=== PATIENT | female | born 1990 | race Caucasian/White ===

== ENCOUNTER 2024-05-03 08:06 | Emergency (ER) | payer OTHER, SELFPAY ==
[2024-05-03 08:17] VITALS: BP 139/73; PULSE 80; RESP 18; TEMP 36.4; O2SAT 99; BMI 31.8
--- NOTE | 2024-05-03 08:28 | USR_ITS ---
PROCEDURE INFORMATION: Exam: US First Trimester, Transabdominal and US , Transvaginal Exam date and time: 05/03/2024 9:37 AM Age: 33 years old Clinical indication: complicated by abdominal or pelvic pain; Right lower quadrant; First trimester (<14 weeks 0 days); Gestational age or lmp: 5w; ; Prior surgery; Surgery date: 6+ months; Surgery type: Unsure of dates. Patient states she has had laparoscopic surg and d&c; Additional info: Rlq pain, 5 weeks TECHNIQUE: Imaging protocol: Real-time transabdominal obstetrical ultrasound of the maternal pelvis and a first trimester , less than 14 weeks 0 days, with image documentation. Transvaginal imaging was used for better evaluation of the fetus, adnexa, and/or cervix. COMPARISON: No relevant prior studies available. FINDINGS: GESTATION: Gestation: 0.4 x 0.3 x 0.5 cm hypoechoic cystic structure in the endometrium without evidence of a pole or intrauterine heart rate at this time. Embryonic/ heart rate: See Gestation finding. Extra-embryonic membranes/Placenta: See Uterus finding. Amniotic/Chorionic fluid: N/A BIOMETRY: Gestational age (AUA): 5 weeks 1 day. Mean sac diameter: 0.41 cm. EGA (MSD) is 5 w 1 d MATERNAL: Uterus: There is an ovoid hypoechoic structure adjacent to the endometrium measuring 1.6 x 0.5 x 1.3 cm suggestive of subchorionic hemorrhage. The uterus otherwise appears unremarkable. Cervix: Cervical length measures 3.1 cm. Multiple nabothian cysts visualized. Right ovary/adnexa: The right ovary measures 2.2 x 1.2 x 2.6 cm and appears unremarkable. Left ovary/adnexa: The left ovary was not identified on examination. Intraperitoneal space: No intraperitoneal free fluid. US/US OB <=14 wk fetus w transvag IMPRESSION: 1. Single intrauterine gestation with an estimated age of 5 weeks 1 day. No pole or intrauterine heart rate is identified at this time likely related to early gestational age. There is an ovoid hypoechoic structure adjacent to the endometrium suspicious for subchorionic hemorrhage measuring up to 1.6 cm. Recommend close interval follow-up to establish viability of the gestation. 2. The right ovary appears unremarkable. The left ovary was not visualized on exam.
[2024-05-03 08:47] LABS: Basophils % 0.5 %; Eosinophils # 0.1 10^3/uL (0.0-0.8); Eosinophils % 0.8 %; Hematocrit 45.2 % (36-47); Lymphocytes # 1.8 10^3/uL (0.8-4.8); Lymphocytes % 24.2 %; Mean Corpuscular HGB Conc 32.1 g/dL (30-55); Mean Corpuscular Hemoglobin 30.5 pg (27-33); Mean Corpuscular Volume 95.2 fl (85-98); Mean Platelet Volume 9.3 fL (7.4-10.4); Monocytes # 0.4 10^3/uL (0.2-0.9); Monocytes % 5.3 %; Neutrophils # 5.03 10^3/uL (1.8-7.7); Neutrophils % 68.9 %; Nucleated Red Blood Cells % 0 %; Platelet Count 242 10^3/cmm (157-399); Red Blood Count 4.75 10^6/uL (3.85-5.65); Red Cell Distribution Width 12.3 % (12.1-15.1); White Blood Count 7.31 10^3/uL (3.29-11.43)
[2024-05-03 09:17] LABS: Alanine Aminotransferase 11 U/L (0-33); Albumin Level 4.1 g/dL (3.5-5.2); Alkaline Phosphatase 95 U/L (35-105); Anion Gap 16.2 (5-19); Aspartate Amino Transferase 12 U/L (0-32); Blood Urea Nitrogen 9 mg/dL (6-20); Calcium 9.1 mg/dL (8.5-10.5); Carbon Dioxide 22 mmol/L (22-29); Chloride 106 mmol/L (98-107); Creatinine Clr Calc Pharmacy 134.4061; Globulin 2.7 g/dL (1.3-4.6); Glucose 105 mg/dL (65-115); Osmolality Calculated 289 mOsm/kg (285-295); Potassium 4.2 mmol/L (3.5-5.1); Sodium 140 mmol/L (136-145); Total Bilirubin 0.2 mg/dL (0.15-1.2); Total Protein 6.8 g/dL (6.6-8.7)
--- NOTE | 2024-05-03 09:57 | USR_ITS ---
PROCEDURE INFORMATION: Exam: US Abdomen, Limited; Appendix Exam date and time: 05/03/2024 10:17 AM Age: 33 years old Clinical indication: Abdominal pain; Localized; Right lower quadrant (rlq); ; Additional info: Rlq pain TECHNIQUE: Imaging protocol: Real time ultrasound of the abdomen with image documentation. Limited exam focused on the appendix. COMPARISON: US OB <=14 wk fetus w transvag 05/03/2024 9:37 AM FINDINGS: Appendix: The appendix is not definitively identified . No free fluid or noncompressible loop of bowel in the right lower quadrant. US/US appendix [id number] IMPRESSION: The appendix is not sonographically identified however there are no secondary sonographic signs to suggest acute appendicitis.
[2024-05-03 10:45] LABS: Bilirubin Urine Negative (Negative); Blood Urine Negative (Negative); Glucose Urine UA Negative (Normal); Ketones Urine Negative (Negative); Leukocyte Esterase Urine 3+ (Negative); Nitrate Urine Negative (Negative); Protein Urine Negative (Negative); Specific Gravity, Urine 1.008 (1.005-1.030); Urine Appearance Clear (CLEAR); Urine Color Yellow (Yellow); Urobilinogen Urine 0.2 mg/dL (Negative)
[2024-05-03 10:47] LABS: Add Urine Microscopic? YES; Bacteria Urine 2+ /hpf; Hyaline Casts Urine 4.95 /lpf
[2024-05-03 10:57] LABS: UA Slide Review UA Slide Review Perf
--- NOTE | 2024-05-03 11:04 | ED_ITS ---
HPI - 2 General: Chief complaint: Abdominal Pain Stated complaint: abd pain (5 wk preg) Time Seen by Provider: 05/03/24 08:28 History of Present Illness: This patient is a 33 year old with 3 early miscarriages and a preemie at 22 weeks who was not rescusitated. She is 5 weeks with her ninth and started having RLQ pain 1 1/2 weeks ago. It is sharp - like needles being pushed into her - and worse with activity. No N/V/bowel changes, no urinary complaints. No vaginal bleeding. She has had a hysteroscopy and laparoscopy and a D and C. No other surgeries. no history of kidney stones. She still has her appendix. She lives around [facility] and is here for work. Her first OB appointment is in June. Related Data Home Medications Medication Instructions Recorded Confirmed cyclobenzaprine 5 mg tablet 5 mg PO TID PRN 08/07/23 08/07/23 hydroxyzine HCl 25 mg tablet 25 mg PO BID PRN 08/07/23 08/07/23 naproxen 500 mg tablet 500 mg PO BID 08/07/23 08/07/23 ondansetron HCl 4 mg tablet 4 mg PO Q8H 08/07/23 08/07/23 sertraline 100 mg tablet 125 mg PO DAILY 08/07/23 08/07/23 tramadol 50 mg tablet 50 mg PO TID PRN 08/07/23 08/07/23 Allergies Allergy/AdvReac Type Severity Reaction Status Date / Time No Known Allergies Allergy Unverified 08/07/23 10:42 Physical Exam 2 Const: COMMON NORMALS: no acute distress, patient oriented x3, no limitations and alert GENERAL APPEARANCE: cooperative and comfortable HENMT: HEAD & SCALP: normal to inspection FACE & SINUS: normal facial exam Eye: GENERAL EYE: appearance normal, both eyes and all related structures Neck/C-Spine: COMMON NORMALS: supple, no meningeal signs and no JVD Chest: COMMONS NORMALS: normal inspection of the chest Resp: COMMON NORMALS: normal respiratory effort, No use of accessory muscles and clear to auscultation bilaterally AUSCULTATION: clear to auscultation bilaterally Cardio: COMMON NORMALS: no JVD, regular rate, regular rhythm and No murmurs present (Cardio) RATE: regular rate RHYTHM: regular rhythm GI: COMMON NORMALS: Normal to inspection, nondistended, normoactive bowel sounds present, Soft to palpation and non-tender INSPECTION: Yes normal to inspection AUSCULTATION: Yes normoactive bowel sounds PALPATION: Yes Soft to palpation Back/Pelvis: COMMON NORMALS: thoracic and lumbar spine normal to inspection Extremity: COMMON NORMALS: normal to inspection Neuro: COMMON NORMALS: patient oriented x3, moves all extremities, no focal motor deficits and no sensory deficits noted SENSORIUM/ORIENTATION: Yes alert MENINGEAL SIGNS: Yes no meningeal signs Psych: COMMON NORMALS: mental status grossly normal, cooperative and normal affect Skin: COMMON NORMALS: no rashes or lesions noted and turgor normal GENERAL SKIN EXAM: no rashes or lesions noted and turgor normal Course 2 Vital Signs: Vital signs: Vital Signs Temperature 97.6 F 05/03/24 08:17 Pulse Rate 80 05/03/24 08:17 Respiratory Rate 18 05/03/24 08:17 Blood Pressure 139/73 05/03/24 08:17 Pulse Oximetry 99 05/03/24 08:17 Oxygen Delivery Me thod Room Air 05/03/24 08:17 MDM - OB/Uterine Contractions Medical Decision Making Early IUP - RLQ pain not typical for appendicitis or renal colic. No hernia palpable. Unlikely torsion based on clinical history. US shows an IUP - quant is 3200. Appendix not visualized. Exam benign. Plan for tylenol for pain - return precautions. Outpatient follow up. Given disc with the US images and a print out of labs. Lab Data 05/03/24 08:40 05/03/24 08:40 Radiology Impressions Obstetrics Ultrasound 05/03/24 08:28 IMPRESSION: 1. Single intrauterine gestation with an estimated age of 5 weeks 1 day. No pole or intrauterine heart rate is identified at this time likely related to early gestational age. There is an ovoid hypoechoic structure adjacent to the endometrium suspicious for subchorionic hemorrhage measuring up to 1.6 cm. Recommend close interval follow-up to establish viability of the gestation. 2. The right ovary appears unremarkable. The left ovary was not visualized on exam. Appendix Ultrasound 05/03/24 09:57 IMPRESSION: The appendix is not sonographically identified however there are no secondary sonographic signs to suggest acute appendicitis. Laboratory Results WBC 7.31 10^3/uL (3.29-11.43) 05/03/24 08:40 RBC 4.75 10^6/uL (3.85-5.65) 05/03/24 08:40 Hgb 14.50 g/dL (11.27-16.99) 05/03/24 08:40 Hct 45.2 % (36-47) 05/03/24 08:40 MCV 95.2 fl (85-98) 05/03/24 08:40 MCH 30.5 pg (27-33) 05/03/24 08:40 MCHC 32.1 g/dL (30-55) 05/03/24 08:40 RDW 12.3 % (12.1-15.1) 05/03/24 08:40 Plt Count 242 10^3/cmm (157-399) 05/03/24 08:40 MPV 9.3 fL (7.4-10.4) 05/03/24 08:40 Neut % (Auto) 68.9 % 05/03/24 08:40 Lymph % (Auto) 24.2 % 05/03/24 08:40 [place] % (Auto) 5.3 % 05/03/24 08:40 Eos % (Auto) 0.8 % 05/03/24 08:40 Baso % (Auto) 0.5 % 05/03/24 08:40 Neut # (Auto) 5.03 10^3/uL (1.8-7.7) 05/03/24 08:40 Lymph # (Auto) 1.8 10^3/uL (0.8-4.8) 05/03/24 08:40 [place] # (Auto) 0.4 10^3/uL (0.2-0.9) 05/03/24 08:40 Eos # (Auto) 0.1 10^3/uL (0.0-0.8) 05/03/24 08:40 Baso # (Auto) 0.0 10^3/uL (0.0-0.1) 05/03/24 08:40 Nucleated RBC % (auto) 0 % 05/03/24 08:40 Nucleated RBCs # 0.0 /100WBC 05/03/24 08:40 Sodium 140 mmol/L (136-145) 05/03/24 08:40 Potassium 4.2 mmol/L (3.5-5.1) 05/03/24 08:40 Chloride 106 mmol/L (98-107) 05/03/24 08:40 Carbon Dioxide 22 mmol/L (22-29) 05/03/24 08:40 Anion Gap 16.2 (5-19) 05/03/24 08:40 BUN 9 mg/dL (6-20) 05/03/24 08:40 Creatinine 0.7 mg/dL (0.5-0.9) 05/03/24 08:40 GFR Calculation 97.0 mL/min (90-130) 05/03/24 08:40 Glucose 105 mg/dL (65-115) 05/03/24 08:40 Calculated Osmolality 289 mOsm/kg (285-295) 05/03/24 08:40 Calcium 9.1 mg/dL (8.5-10.5) 05/03/24 08:40 Total Bilirubin 0.2 mg/dL (0.15-1.2) 05/03/24 08:40 AST 12 U/L (0-32) 05/03/24 08:40 ALT 11 U/L (0-33) 05/03/24 08:40 Alkaline Phosphatase 95 U/L (35-105) 05/03/24 08:40 Total Protein 6.8 g/dL (6.6-8.7) 05/03/24 08:40 Albumin 4.1 g/dL (3.5-5.2) 05/03/24 08:40 Globulin 2.7 g/dL (1.3-4.6) 05/03/24 08:40 Ser , Semi-Qnt 3245.00 mIU/mL 05/03/24 08:40 Urine Color Yellow (Yellow) 05/03/24 10:26 Urine Appearance Clear (CLEAR) 05/03/24 10:26 Urine pH 7.0 (5-7) 05/03/24 10:26 Ur Specific [place] 1.008 (1.005-1.030) 05/03/24 10:26 Urine Protein Negative (Negative) 05/03/24 10:26 Urine Glucose (UA) Negative (Normal) 05/03/24 10:26 Urine Ketones Negative (Negative) 05/03/24 10:26 Urine Blood Negative (Negative) 05/03/24 10:26 Urine Nitrate Negative (Negative) 05/03/24 10:26 Urine Bilirubin Negative (Negative) 05/03/24 10:26 Urine Urobilinogen 0.2 mg/dL (Negative) 05/03/24 10:26 Ur Leukocyte Esterase 3+ (Negative) A 05/03/24 10:26 Urine RBC 3-5 /hpf (0-2) 05/03/24 10:26 Urine WBC 11-20 /hpf (0-5) H 05/03/24 10:26 Ur Squamous Epith Cells 11-20 /hpf (0-5) 05/03/24 10:26 Amorphous Sediment Not Reportable 05/03/24 10:26 Urine Bacteria 2+ /hpf (NONE) H 05/03/24 10:26 Hyaline Casts 4.95 /lpf 05/03/24 10:26 All radiology interpretation(s) finalized by discharge Discharge Plan Discharge Patient Disposition: Home Clinical Impression: Right lower quadrant abdominal pain, Normal intrauterine on ultrasound in first trimester, Subchorionic hematoma in first trimester Condition: Stable Prescriptions: No Action sertraline 100 mg tablet 125 mg PO DAILY tramadol 50 mg tablet 50 mg PO TID PRN cyclobenzaprine 5 mg tablet 5 mg PO TID PRN hydroxyzine HCl 25 mg tablet 25 mg PO BID PRN ondansetron HCl 4 mg tablet 4 mg PO Q8H naproxen 500 mg tablet 500 mg PO BID Discharge Orders: Discharge ED (Routine); Ordered 05/03/24 Ordered By: Meredith Freitas Patient Instructions: Abdominal Pain (ED), Opioid Safety, Pain Management Activity Restrictions/Additional Instructions: Follow up with your OB within a week if not improving - return to the ED if new or worse symptoms occur. Rest. Use tylenol for pain as needed. Coding Level of Care Code ED Stereotyper Helper for Katarzyna Reddy
[2024-05-03 11:29] VITALS: BP 113/64; PULSE 86; O2SAT 99
[2024-05-03 11:30] VITALS: BP 113/64; PULSE 86; O2SAT 99
== END 2024-05-03 11:31 | disposition home or self-care (01) ==
PROVIDERS: Emergency Provider Emergency Medicine
DX: R10.31 Right lower quadrant pain (principal); Z3A.01 Less than 8 weeks gestation of pregnancy; O99.411 Diseases of the circulatory system complicating pregnancy, first trimester
CPT/HCPCS: 76705; 76801; 76817; 80053; 81001; 84702; 85025; 99284

== ENCOUNTER 2024-10-23 17:25 | Outpatient (CLI) | payer OTHER, SELFPAY ==
[2024-10-23 17:35] VITALS: BMI 32.8
[2024-10-23 17:40] VITALS: BP 118/71; PULSE 81
[2024-10-23 17:55] VITALS: BP 116/66; PULSE 83
[2024-10-23 18:03] LABS: Bilirubin Urine Negative (Negative); Blood Urine Negative (Negative); Glucose Urine UA Negative (Normal); Ketones Urine Negative (Negative); Leukocyte Esterase Urine Negative (Negative); Nitrate Urine Negative (Negative); Protein Urine Negative (Negative); Specific Gravity, Urine 1.015 (1.005-1.030); Urine Appearance Clear (CLEAR); Urine Color Yellow (Yellow); pH Urine 6.5 (5-7)
[2024-10-23 18:09] LABS: Bacteria Urine None Seen /hpf; Hyaline Casts Urine 0.81 /lpf; RBC Urine 0-2 /hpf (0-2); Squamous Epithelial Cell Urine 0-5 /hpf (0-5); WBC Urine 0-5 /hpf (0-5)
[2024-10-23 18:10] VITALS: BP 111/70; PULSE 93
[2024-10-23 18:11] LABS: Amphetamines Screen Urine Negative (Negative); Barbiturates Screen Urine Negative (Negative); Benzodiazepines Screen Urine Negative (Negative); Cocaine Screen Urine Negative (Negative); Opiate Screen Urine Negative (Negative); PCP Screen Urine Negative (Negative); THC Screen Urine Negative (Negative)
[2024-10-23 18:20] VITALS: BP 111/70; PULSE 93; RESP 17; TEMP 36.5
== END 2024-10-23 18:20 | disposition home or self-care (01) ==
LOC: OPOB 17:30 → OBGYN 17:33
PROVIDERS: Visit Provider Obstetrics & Gynecology
DX: O26.899 Other specified pregnancy related conditions, unspecified trimester (principal); Z3A.00 Weeks of gestation of pregnancy not specified; H53.8 Other visual disturbances
CPT/HCPCS: 59025; 80306; 81001; 99211